=== PATIENT | male | born 1940 | race Caucasian/White ===

== ENCOUNTER 2016-06-23 10:36 | Emergency (ER) | payer OTHER ==
[2016-06-23 10:43] VITALS: BP 160/79
--- NOTE | 2016-06-23 10:53 | PROVIDER DOCUMENTATION ---
HPI-Rash/Wound/ReCheck - General Chief Complaint: Suture/Staple Removal Stated Complaint: suture removal Time Seen by Provider: 06/23/16 10:44 Source: patient Allergies/Adverse Reactions: Allergies Allergy/AdvReac Type Severity Reaction Status Date / Time morphine Allergy Severe Unknown Verified 06/23/16 11:08 Sulfa (Sulfonamide Allergy Severe VOMITING Verified 06/23/16 11:08 Antibiotics) Penicillins Allergy ANAPHYLAXIS Verified 06/23/16 11:08 Home Medications: Home Medication List Medication Instructions Recorded Confirmed Last Taken Type Desvenlafaxine E.r. [Pristiq ER] 50 mg PO DAILY 09/23/12 06/23/16 06/23/16 08: 00 History Simvastatin 40 mg PO RTQHS 09/23/12 06/23/16 06/22/16 20:00 History Tamsulosin [Flomax] 0.4 mg PO DAILY 09/23/12 06/23/16 06/23/16 08:00 History Tramadol HCl 150 mg PO HS 09/23/12 06/23/16 06/22/16 20:00 History Solifenacin [Vesicare] 5 mg PO DAILY 03/26/13 06/23/16 06/23/16 08:00 History Calcitriol 0.25 mcg PO DIRECTED 09/01/14 06/23/16 06/23/16 08:00 History Cyanocobalamin (Vitamin B-12) 500 mcg PO DAILY 09/01/14 06/23/16 06/23/16 08:00 History [Vitamin B-12] Pantoprazole [Protonix] 40 mg PO BID #0 09/05/14 06/23/16 06/23/16 08:00 Rx Sennosides/Docusate Sodium 2 each PO QPM #0 tablet 09/05/14 06/23/16 06/22/16 20 :00 Rx [Pericolace] Mirtazapine [Remeron] 7.5 mg PO DAILY 11/19/15 06/23/16 06/23/16 08:00 History Ferrous Sulfate 325 mg PO DAILY #30 tablet 03/16/16 06/23/16 06/23/16 08:00 Rx Levothyroxine [Synthroid] 50 microgm PO DAILY@0700 #30 tablet 03/16/16 06/23/16 06/23/16 08:00 Rx Polyvinyl Alcohol Eye Drops 2 ml BOTH EYES Q4H PRN PRN #0 03/16/16 06/23/1606/10 08:00 Rx [Tearisol Oph Solution] bottle Ropinirole [Requip] 1 mg PO QHS #30 tablet 03/16/16 06/23/16 06/22/16 20:00 Rx Clindamycin [Cleocin] 150 mg PO Q6HR #30 capsule 06/23/16 Unknown Rx - History of Present Illness-Dermatology Nature of Presenting Problem: Pt is a 76 y/o M at the ER for removal of sutures that were placed one week ago in his L hand for repair of a laceration. Pt states he has been changing the bandage daily and using neosporin. He reports mild pain with some swelling around the wound. He denies fever, loss of sensation, decreased ROM. On arrival, pt is in no distress. Review of Systems - Adult - REVIEW OF SYSTEMS - ADULT Constitutional: reports: no symptoms reported. denies: chills, fatique Eyes: reports: no symptoms reported. denies: blurred vision, double vision Ears, Nose, Mouth & Throat: reports: no symptoms reported. denies: ear pain, nose pain Cardiovascular: reports: no symptoms reported. denies: chest pain, orthopnea Respiratory: reports: no symptoms reported. denies: cough, shortness of breath Gastrointestinal: reports: no symptoms reported. denies: abdominal pain, nausea Genitourinary: reports: no symptoms reported. denies: dysuria, frequent UTI's, hematuria Musculoskeletal: reports: no symptoms reported. denies: bone pain, joint pain Integumentary: reports: skin sores/ulcer. denies: hives, itching, rash Neurological: reports: no symptoms reported. denies: numbness, paresthesia Psychiatric: reports: no symptoms reported. denies: anxiety, emotional problems Endocrine: reports: no symptoms reported. denies: cold intolerance, heat intolerance Hematologic/Lymphatic: reports: no symptoms reported. denies: blood clots, low blood count Allergic/Immunologic: reports: no symptoms reported. denies: allergic reactions , food allergy All Other Systems: Reviewed and Negative Past History - Adult - PAST MEDICAL HISTORY-ADULT Review of Records: reports: Old Records Reviewed, Nursing Assessment Review, Medications Reviewed, Social history reviewed & non-contributory. Major Childhood Illnesses: reports: denies history Cardiovascular: reports: blood clots, hyperlipidemia Respiratory: reports: denies history Gastrointestinal: reports: GERD Obstetrical/Gynecological: reports: denies history Genitourinary: reports: denies history Musculoskeletal: reports: denies history Neurological: reports: TIA Psychiatric: reports: depression Endocrine/Immune: reports: denies history Other Conditions: reports: denies history - PRIOR SURGERIES/PROCEDURES Surgical/Procedure History: reports: appendectomy, CABG, cholecystectomy, cardiac stent - PRIOR HOSPITALIZATIONS Prior Hospitalizations: reports: for other non-related - IMMUNIZATION STATUS Childhood Immunizations: See Nurse Assessment Flu Vaccine: See Nurse Assessment - FAMILY HISTORY Family History: reviewed, not pertinent - SOCIAL HISTORY Smoking: denies Substance Use: none/never Alcohol Use Frequency: never Physical Exam-General - PHYSICAL EXAM-ADULT Initial Vital Signs Reviewed: Yes - CONSTITUTIONAL General Appearance: appears well, alert, no apparent distress - EYES Eyes: PERRL/EOMI, pink conjunctivae - HEAD, EARS, NOSE, MOUTH & THROAT HENMT: normocephalic/atraumatic, moist mucous membranes, normal ENT inspection - NECK Neck: non-tender - RESPIRATORY Respiratory: chest non-tender, lungs clear, normal breath sounds - CARDIOVASCULAR Cardiovascular: normal peripheral pulses, regular rate, rhythm, no edema - GASTROINTESTINAL (ABDOMEN) Abdominal Exam: normal bowel sounds, non tender, soft - LYMPHATIC Lymphatic: no adenopathy - MUSCULOSKELETAL Back Exam: normal inspection, no CVA tenderness, no vertebral tenderness Extremity: normal range of motion, non-tender, normal gait - SKIN Integumentary: normal color, normal turgor, warm/dry, laceration(s) (laceration with sutures intact; localized swelling and inflammation of skin around the laceration.) - NEUROLOGIC Neurologic: grossly normal, no motor/sensory deficits - PSYCHIATRIC Psych/Mental Status: normal mood/affect, normal thought content, normal thought process, oriented x 3 Progress - PLAN OF CARE/RESULTS Progress/Plan/Lab Results: Vital Signs - 24 hr 06/23/16 10:39 Temperature 97.6 F Pulse Rate 77 Respiratory 16 Rate Blood Pressure 160/79 O2 Sat by Pulse 95 Oximetry sutures removed without difficulty however there is localized tissue swelling and erythema around the laceration. No sign of dehiscence or purulent drainage. Pt states he has been applying neosporin. Pt is allergic to sulfa drugs and pcn. I will start him on a short run of clinda and have him follow up with his primary care physician or the ER for a wound re-check. Departure - Departure Time of Disposition Order: 10:51 DIAGNOSIS: Local skin infection, Visit for suture removal Disposition: HOME 01 Certified Medical Emergency: Emergent Condition: Stable Additional Instructions: DISCONTINUE USING NEOSPORIN. TAKE ORAL ANTIBIOTICS DIRECTED. FOLLOW UP WITH YOUR PRIMARY CARE PHYSICIAN OR RETURN TO THE ER IN ONE WEEK FOR RE-CHECK OF WOUND. ED Follow Up Instructions: You have been treated by a care provider in the Emergency Department. These instructions are being provided to you so you can have an understanding of how to care for yourself upon discharge. Upon discharge from the Emergency Department, you are responsible for making arrangements for follow-up care by a physician of your choice. Take all prescribed medications as directed. Return to the Emergency Department immediately for any new or worsening symptoms. You may call the Physician Referral phone number at [phone] to obtain a list of Physicians who are taking new patients. Prescriptions: Clindamycin [Cleocin] 150 mg PO Q6HR #30 capsule Referrals: Tj Xiong MD [Primary Care Provider] - Call for Appoint. -1 week Instructions: Suture Removal, Care After Attestation - Physician/ CYNDY Attestation Patient care was provided by Advanced Practice Provider:: Yes Advanced Practice Provider:: Lanre Burroughs Advanced Practice Provider documentation review:: The Mid-level provider documentation, treatment plan and medical decision making was reviewed by the physician who agrees with all treatment and medical decision making by the MLP.
== END 2016-06-23 11:18 | disposition home or self-care (01) ==
LOC: ED 10:36
DX: Z48.02 Encounter for removal of sutures (principal); S61.412D Laceration without foreign body of left hand, subsequent encounter; L08.9 Local infection of the skin and subcutaneous tissue, unspecified; M79.642 Pain in left hand; Z86.718 Personal history of other venous thrombosis and embolism; E78.5 Hyperlipidemia, unspecified; K21.9 Gastro-esophageal reflux disease without esophagitis; Z86.73 Personal history of transient ischemic attack (TIA), and cerebral infarction without residual deficits; Z79.899 Other long term (current) drug therapy; F32.9 Major depressive disorder, single episode, unspecified; Z95.1 Presence of aortocoronary bypass graft; Z95.5 Presence of coronary angioplasty implant and graft

== ENCOUNTER 2017-01-25 00:41 | Inpatient (IN) ==
--- NOTE | 2017-01-19 11:20 | EKG Report ---
Test Performed on : 01/19/2017 10:24:41 AM Test Reason : PAT Blood Pressure : / mmHG Vent. Rate : 060 BPM Atrial Rate : 060 BPM P-R Int : 224 ms QRS Dur : 070 ms QT Int : 410 ms P-R-T Axes : 089 031 053 degrees QTc Int : 410 ms Sinus rhythm. with 1st degree AV block. Low voltage QRS Cannot rule out Anterior infarct , age undetermined Abnormal ECG When compared with ECG of March 13, 2016- Criteria for possible Anterior infarct is new. Confirmed by Ty Cerda MD ([id number]) on 01/21/2017 3:04:54 PM
[2017-01-19 11:34] LABS: URINE MICRO REVIEW NEEDED? NO; URINE SOURCE CLEAN CATCH
[2017-01-19 11:36] LABS: MANUAL DIFF NEEDED? NO; PLT 106 X1000 (130-400)
[2017-01-19 11:39] LABS: BASO% 0.5 % (0.0-0.8); EOS# 0.09 X1000 (0.0-0.7); EOS% 1.2 % (0.0-10.0); HEMATOCRIT 47.5 % (42.0-52.0); IMM GRAN# 0.02 X1000 (0.0-0.04); IMM GRAN% 0.3 % (0.0-0.5); LYMPH# 3.55 X1000 (1.2-3.4); LYMPH% 47.7 % (20.5-51.1); MCH 31.1 PG (27-31); MCHC 33.7 g/dL (33-37); MCV 92.4 FL (81-99); MONO# 0.52 X1000 (0.11-0.59); MPV 12.3 FL (7.4-10.4); NEUT% 43.3 % (42.2-75.2); RBC 5.14 XMIL (4.7-6.1)
[2017-01-19 11:49] LABS: BILIRUBIN URINE NEGATIVE (NEGATIVE); BLOOD URINE MODERATE (NEGATIVE); COLOR YELLOW; GLUCOSE URINE NEGATIVE (NEGATIVE); LEUKOCYTES URINE NEGATIVE (NEGATIVE); NITRITE URINE NEGATIVE (NEGATIVE); PROTEIN URINE NEGATIVE (NEGATIVE); SP GRAVITY URINE 1.019; TURBIDITY URINE CLEAR (CLEAR); UROBILINOGEN URINE NORMAL (NORMAL)
[2017-01-19 11:50] LABS: UR EPITHELIAL CELLS <10 /HPF (<10); URINE BACTERIA NEGATIVE /HPF; URINE RBC TNTC /HPF (<10); URINE WBC <10 /HPF (<10)
[2017-01-19 11:50] LABS: INR 1.5; PROTIME 16.2 Seconds (9.2-11.7); PTT 35.2 Seconds (22.0-36.0)
[2017-01-19 12:34] LABS: CALCIUM 9.8 mg/dL (8.8-10.2)
[2017-01-25] MEDS ORDERED: LR 1,000 ML ONE ×2 (06:40→10:46)
[2017-01-25] MEDS ORDERED: PEPCID ONE (06:40)
[2017-01-25] MEDS ORDERED: REGLAN ONE (06:40)
[2017-01-25] MEDS ORDERED: LYRICA ONE (06:40)
[2017-01-25] MEDS ORDERED: VANCOMYCIN 1 GM/NS 1 GM/250 ML IVPB ONE (06:40)
[2017-01-25] MEDS ORDERED: COLACE ONE (06:40)
--- NOTE | 2017-01-25 07:35 | HISTORY AND PHYSICAL ---
CHIEF COMPLAINT: Right knee pain. HISTORY OF PRESENT ILLNESS: Mr. Mcdaniel is a 76-year-old white male who has experienced recalcitrant right knee pain for some time. Radiographic evaluation of the knee reveals findings consistent with advanced degenerative joint disease. Despite conservative therapy, he has a reduction in his ability to conduct his normal daily activities, and he will be admitted at this time for a right total knee arthroplasty. PRIMARY CARE PROVIDER: Dr. Silvino Xiong. ALLERGIES: 1. Morphine. 2. Sulfa. 3. Penicillin. PAST MEDICAL HISTORY: 1. Coronary artery disease. 2. Osteoarthritis. 3. History of abdominal aortic aneurysm. 4. History of deep venous thrombosis. 5. Chronic obstructive pulmonary disease. 6. Benign prostatic hypertrophy. 7. Depression. 8. Anxiety disorder. 9. Hypothyroidism. 10. History of cataracts. PAST SURGICAL HISTORY: 1. Abdominal aortic aneurysm repair. 2. Cholecystectomy. 3. Percutaneous transluminal coronary angioplasty. 4. Appendectomy. 5. Bilateral iliac stent placement. 6. Osteoarthritis. SOCIAL HISTORY: The patient is a remote smoker. He is . He maintains a home with his . HOME MEDICATIONS: 1. Protonix 40 mg daily. 2. Finasteride 5 mg daily. 3. Flomax 0.4 daily. 4. Pristiq ER 50 in the morning. 5. Calcitriol 0.25 mcg as directed. 6. Synthroid 50 mcg daily. 7. Iron supplement 325 mg daily. 8. B12 supplement 500 mcg daily. 9. Simvastatin 40 mg daily. 10. Aricept 10 mg daily. 11. Tramadol 150 mg by mouth at bedtime. 12. Topiramate 200 mg daily. 13. Ditropan 5 mg daily. 14. Remeron 7.5 mg daily. 15. Coumadin 5 mg daily. This was discontinued in prior to surgery. REVIEW OF SYSTEMS: HEENT: The patient has a history of cataract disease. He previously underwent a transient ischemic attack. He denies any focal neurological deficits remaining. Heart: He has a longstanding history of coronary artery disease having underwent a percutaneous transluminal coronary angioplasty. Denies chest pain, pressure, or other anginal equivalents at this time. Lungs: He has a history of smoking. He has COPD. Gastrointestinal: He is treated for gastroesophageal reflux disease. Genitourinary: He takes medicine for BPH. He has a history of kidney stones. 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 Musculoskeletal: He is here today for osteoarthritis of his right knee. He also has a history of spinal stenosis. Other: He is treated for hypothyroidism and dyslipidemia. PHYSICAL EXAMINATION: GENERAL: The patient is resting comfortably in bed. He is articulate and able to answer all questions. HEENT: Head is normocephalic and atraumatic. Pupils are equal, round, and react to light. Nares are patent. Throat without exudate. HEART: Regular rate and rhythm. No murmurs, gallops, or rubs. LUNGS: Clear to auscultation bilaterally. ABDOMEN: Round. Bowel sounds are present. It is nontender. GENITOURINARY: Not examined. NEUROLOGICAL: Gross motor function is intact to the right lower extremity. MUSCULOSKELETAL: Right leg: No deformity, edema, or ecchymosis is noted. He has good peripheral pulse. IMPRESSION: Degenerative joint disease of the right knee. PLAN: Right total knee arthroplasty. The risks and benefits of surgery were explained to the patient including the risk of anesthesia, , bleeding, infection, damage to tendons, ligaments, nerves, blood vessels, the possibility of blood clots and other imponderables were discussed, and the patient wishes to proceed with operative management at this time. Dictated by GIANNI Rudolph for Eduin Guerrero MD cc: GIANNI Rudolph MD
[2017-01-25 07:56] LABS: INR 1.06; PROTIME 11.2 Seconds (9.2-11.7); PTT 35.2 Seconds (22.0-36.0)
[2017-01-25] MEDS ORDERED: VERSED ONE (08:09)
[2017-01-25] MEDS ORDERED: FENTANYL ONE (08:09)
[2017-01-25] MEDS ORDERED: XYLOCAINE-MPF 2% ONE (08:16)
[2017-01-25] MEDS ORDERED: DIPRIVAN 1% 500 MG/50 ML BOTTLE ONE (08:16)
[2017-01-25] MEDS ORDERED: VANCOMYCIN ONE (08:17)
[2017-01-25] MEDS ORDERED: MARCAINE 0.25% PF ONE (08:17)
[2017-01-25] MEDS ORDERED: CYKLOKAPRON 1,000 MG/NS 1,000 MG/100 ML IVPB ONE ×2 (08:17→08:18)
[2017-01-25] MEDS ORDERED: TORADOL ONE (08:17)
[2017-01-25] MEDS ORDERED: SODIUM CHLORIDE 0.9% ONE ×2 (08:17→08:28)
[2017-01-25] MEDS ORDERED: DURAMORPH ONE (08:17)
[2017-01-25] MEDS ORDERED: EXPAREL 1.3% ONE (08:19)
[2017-01-25] MEDS ORDERED: NEOSPORIN G.U. IRRIGANT ONE (08:19)
[2017-01-25] MEDS ORDERED: TOPIRAMATE 200 MG PO SCH (09:00)
[2017-01-25] MEDS ORDERED: DITROPAN PO SCH (09:00)
[2017-01-25] MEDS ORDERED: PRISTIQ ER PO SCH (09:00)
[2017-01-25 09:34] LABS: URINE MICRO REVIEW NEEDED? NO; URINE SOURCE CATH
[2017-01-25 09:41] LABS: BILIRUBIN URINE NEGATIVE (NEGATIVE); BLOOD URINE NEGATIVE (NEGATIVE); COLOR YELLOW; GLUCOSE URINE NEGATIVE (NEGATIVE); LEUKOCYTES URINE NEGATIVE (NEGATIVE); NITRITE URINE NEGATIVE (NEGATIVE); PROTEIN URINE NEGATIVE (NEGATIVE); SP GRAVITY URINE 1.011; TURBIDITY URINE HAZY (CLEAR); UR EPITHELIAL CELLS <10 /HPF (<10); URINE BACTERIA NEGATIVE /HPF; URINE RBC <10 /HPF (<10); URINE WBC <10 /HPF (<10); UROBILINOGEN URINE NORMAL (NORMAL)
[2017-01-25] MEDS ORDERED: DECADRON ONE (09:47)
[2017-01-25] MEDS ORDERED: OFIRMEV 1000 MG/ISOTONIC SOLN 1,000 MG/100 ML BOTTLE ONE (09:47)
[2017-01-25] MEDS ORDERED: ZOFRAN ONE (09:47)
[2017-01-25] MEDS ORDERED: NEO-SYNEPHRINE ONE (10:04)
[2017-01-25] MEDS ORDERED: DILAUDID IV PRN (11:48)
[2017-01-25] MEDS ORDERED: MILK OF MAGNESIA PO PRN (11:48)
[2017-01-25] MEDS ORDERED: ZOFRAN PO PRN (11:48)
[2017-01-25] MEDS ORDERED: ZOFRAN IV PRN (11:48)
--- NOTE | 2017-01-25 12:01 | Diag Imaging Result Doc PS360 ---
KNEE 1-2 VIEWS-RIGHT - 01/25/2017 INDICATION: RT TKA TECHNIQUE: COMPARISON: 12/24/2015 FINDINGS: There is a right total knee arthroplasty. Alignment is anatomic. No hardware fracture or loosening. IMPRESSION: No complication. Electronically signed by Chico Reed 01/25/2017 11:58 AM
--- NOTE | 2017-01-25 12:29 | OPERATIVE NOTE ---
PROCEDURE DATE: 01/25/2017 PREOPERATIVE DIAGNOSIS: Degenerative osteoarthritis of the right knee. POSTOPERATIVE: Degenerative osteoarthritis of the right knee. PROCEDURE: Right total knee arthroplasty with DePuy Attune size 7 posterior stabilized femur, size 7 tibial tray, 7 mm rotating platform tibial insert, and a 38 mm medialized anatomic patella. SURGEON: Eduin Guerrero MD. MOTTLER OPERATOR: GIANNI Rudolph. SECOND GEOINT ANALYST: GIANNI Gutierrez and Brandin Isidro RN. ANESTHESIA: Spinal. IV FLUIDS: 2000 mL lactated Ringer. ESTIMATED BLOOD LOSS: 75 mL. TOURNIQUET TIME: 80 minutes at 350 mmHg. COMPLICATIONS: None. INDICATION: The patient is a 76-year-old male with a chronic history of worsening pain and discomfort of the right knee. Continued pain and discomfort despite appropriate nonoperative treatment. X-rays reveal degenerative osteoarthritis of the right knee. Recommendation to proceed with right total knee arthroplasty was offered. Risks and benefits of surgery were explained including the risks of anesthesia, , bleeding, infection, failure to relieve pain, postoperative stiffness, nerve injury, blood clots, and other imponderables. All questions answered and patient and family wish to proceed with surgery. DETAILS OF OPERATION: The patient was taken to the operating room and placed supine on the operating table. Once adequate anesthesia was obtained, the patient's right lower extremity was subsequently prepped and draped in usual sterile fashion. An Esmarch was used to exsanguinate the right lower extremity. The tourniquet was inflated to 350 mmHg. A standard anterior incision made with a skin knife. Medial and lateral skin envelopes were developed. Standard medial parapatellar arthrotomy was then performed. Patella fat pad was excised. Retractors were then placed. Approximately 1 cm anterior to the PCL insertion, starting reamer was passed. Intramedullary guide with a distal femoral cutting block was pinned in position. Distal femoral cut was then performed in standard fashion. A sizing block was placed and measured size 7. Corresponding pins were placed. Anterior, posterior, and chamfer cuts were then made. Attention then turned to the proximal tibia. Further resection of the ACL and PCL was performed. Using the extramedullary guide, the proximal tibia cutting block was pinned in position. Had good alignment confirmed with the alignment ibrahima. The proximal tibia was then resected. A curved osteotome was used to remove the posterior osteophytes off the distal femur. The medial and lateral meniscus was excised. A spacer block was placed and had good soft tissue balance in both flexion and extension. Attention turned back to the proximal tibia where a size 7 tibial tray appeared to be the correct size. This was pinned in position. This was followed by a central reamer and a fin punch. A box cutting guide was then placed on the distal femur and a box cut was then performed. Trial femoral component was then placed and 2 lug holes were drilled. Trial tibial insert was placed and had good soft tissue balancing. The patella was everted and resected in standard fashion. A 38 appeared to be the correct size. Corresponding holes were placed. The patella was then carried through range of motion and had some lateral translation. Therefore a lateral release was performed and then had good patellofemoral alignment. The trial components were removed. Copious irrigation was then performed with antibiotic pulsatile lavage while vancomycin was mixed with cement on back table. Sequential cementing was then performed, first with the tibial tray and excess cement with a [place], followed by the femoral component and excess cement with a [place], followed by trial tibial insert and axial loading in full extension was maintained while cement cured. Patella cemented in standard fashion. Patella clamp was placed. While the cement was curing, Exparel was placed in the deep soft tissue, as well as subcutaneous tissue. After the cement had cured, peripheral cement was removed with a small osteotome. The 7 mm appeared to correct size for the tibial insert and it was removed. Exparel was then placed in the posterior capsule. The wound was copiously irrigated with antibiotic pulsatile lavage. The 7 mm rotating platform tibial insert was then placed and had good soft tissue balance and range of motion. A 1/8 Hemovac drain was placed and was not sewn in. The wound was copiously irrigated once again with antibiotic pulsatile lavage. Number 1 Vicryl was used to repair the arthrotomy, followed by 2-0 Vicryl to repair the cutaneous tissue, and skin michelle. Adaptic, sterile 4 x 4, Webril, cryo unit, and Janes wrap was applied to the right lower extremity. The patient tolerated the procedure well with no complications and transferred to the recovery room in stable condition. cc: Eduin Guerrero MD
[2017-01-25] MEDS: SYNTHROID PO SCH (13:09)
[2017-01-25] MEDS: FLOMAX PO SCH (13:10)
[2017-01-25] MEDS: ARICEPT PO SCH (13:10)
[2017-01-25] MEDS: FERROUS SULFATE PO SCH (13:10)
[2017-01-25] MEDS: NS 1,000 ML IV SCH ×2 (13:12→20:21)
[2017-01-25] MEDS ORDERED: TYLENOL PO SCH (16:00)
[2017-01-25] MEDS: OXY IR PO PRN ×2 (18:29→23:01)
[2017-01-25] MEDS ORDERED: TYLENOL PO PRN (19:46)
[2017-01-25] MEDS ORDERED: VANCOMYCIN 1 GM/NS 1 GM/250 ML IVPB IV ONE (20:00)
[2017-01-25] MEDS: PERIDEX MT SCH (20:21)
[2017-01-25] MEDS: COLACE PO SCH (20:22)
[2017-01-25] MEDS: PROTONIX PO SCH (20:23)
[2017-01-25] MEDS ORDERED: REQUIP PO ONE ×2 (20:32)
[2017-01-25] MEDS ORDERED: ZOCOR PO SCH (21:00)
[2017-01-25] MEDS ORDERED: ULTRAM PO SCH (21:00)
[2017-01-25] MEDS ORDERED: COUMADIN PO SCH (21:00)
[2017-01-25] MEDS ORDERED: REMERON SOLTAB PO SCH (21:00)
[2017-01-26] MEDS: NS 1,000 ML IV SCH (03:48)
[2017-01-26 06:05] LABS: HEMATOCRIT 39.1 % (42.0-52.0); HEMOGLOBIN 12.9 g/dL (14.0-18.0)
[2017-01-26 06:09] LABS: INR 1.04; PROTIME 10.9 Seconds (9.2-11.7)
[2017-01-26] MEDS: SYNTHROID PO SCH (06:37)
[2017-01-26] MEDS: PROTONIX PO SCH (06:38)
[2017-01-26 06:42] LABS: AGAP 9; BUN 15 mg/dL (8-22); CALCIUM 9.2 mg/dL (8.8-10.2); CHLORIDE 108 mmol/L (98-107); COSMO 281; POTASSIUM 4.5 mmol/L (3.5-5.1); SODIUM 140 mmol/L (136-145); TCO2 23 mmol/L (25-35)
[2017-01-26] MEDS ORDERED: XARELTO PO ONE (07:17)
--- NOTE | 2017-01-26 08:08 | PROGRESS NOTE ---
DATE: 01/26/2017 SUBJECTIVE: Patient is a pleasant 76-year-old male, who is 1 day status post right total knee arthroplasty. The patient is currently resting comfortably and has no complaints this morning. OBJECTIVE: On physical exam, his right lower extremity dressing is intact. His calf is soft. He appears active dorsiflexion and plantar flexion. He is neurovascularly distally. LABORATORY DATA: His hemoglobin is 12.9, hematocrit is 39.1. IMPRESSION: Postoperative day #1 status post right total knee arthroplasty. PLAN: At this point, we will discontinue his drain and Armijo. We will also change his dressing. We will mobilize physical therapy. We will arrange for home physical therapy. The patient will follow up in the office in 12-14 days. cc: Eduin Guerrero MD
[2017-01-26] MEDS: COLACE PO SCH (08:55)
[2017-01-26] MEDS: ARICEPT PO SCH (08:55)
[2017-01-26] MEDS: PERIDEX MT SCH (08:56)
[2017-01-26] MEDS: FLOMAX PO SCH (08:56)
[2017-01-26] MEDS: FERROUS SULFATE PO SCH (08:56)
[2017-01-26] MEDS ORDERED: ROCALTROL PO SCH (09:00)
[2017-01-26 11:25] VITALS: BP 110/62
[2017-01-27] MEDS ORDERED: PROTONIX PO SCH (07:00)
== END 2017-01-26 13:19 | disposition home health service (06) ==
LOC: SURHOLD 00:41 → 4N 09:17
PROVIDERS: ADMIT Orthopaedic Surgery Adult Reconstructive Orthopaedic Surgery; ATTEND Orthopaedic Surgery Adult Reconstructive Orthopaedic Surgery